=== PATIENT | male | born 1945 | race Caucasian/White ===

== ENCOUNTER 2023-11-18 06:22 | Day surgery (SDC) | payer OTHER ==
[2023-11-18] MEDS: Lactated Ringers 1,000 ML IV SCH (06:50)
[2023-11-18] MEDS ORDERED: propofoL 50 ML ONE (07:19)
[2023-11-18] MEDS ORDERED: Lactated Ringers 1,000 ML IV SCH (08:45)
== END 2023-11-18 09:15 | disposition home or self-care (01) ==
LOC: MW.SDS 06:22
PROVIDERS: ATTEND Surgery
DX: Z12.11 Encounter for screening for malignant neoplasm of colon (principal); D12.3 Benign neoplasm of transverse colon; K57.30 Diverticulosis of large intestine without perforation or abscess without bleeding; Z86.010 Personal history of colon polyps; I10 Essential (primary) hypertension; Z79.899 Other long term (current) drug therapy
CPT/HCPCS: 45380; 88305; J2704; J7120; 00811; 99100